=== PATIENT | female | born 2000 | race Caucasian/White ===

== ENCOUNTER 2019-10-18 22:34 | Emergency (ER) | payer OTHER ==
[~2019-10-18] VITALS: Ht 172.7 cm; Wt 62.8 kg
[2019-10-19] MEDS ORDERED: NITROFURANTOIN (MACROBID) 100 MG CAP PO ONE (00:30)
[2019-10-19] MEDS ORDERED: MACR100C43 PO (00:44)
[2019-10-19 00:47] VITALS: BP 124/67
[2019-10-19] MEDS ORDERED: DIFL150T PO (00:50)
== END 2019-10-19 00:50 | disposition home or self-care (01) ==
LOC: M ED 22:34
DX: N39.0 Urinary tract infection, site not specified (principal); R30.0 Dysuria

== ENCOUNTER → 2020-08-11 | Outpatient (CLI) | payer OTHER ==
[~2020-08-11] MED LIST: DIFL150T PO; ISOVUE-300 61% 50ML VIAL As Ordered ONE; LIDOCAINE 1% MDV 20ML VIAL As Ordered ONE; MACR100C43 PO; PROHANCE 279.3MG/ML 5ML VIAL As Ordered ONE
--- NOTE | 2020-08-11 10:59 | REP ---
INDICATION: PAIN IN LT HIP COMPARISON: None. TECHNIQUE: Coronal T1, STIR through the pelvis, axial, coronal, sagittal T2 fat sat, post arthrogram axial T1 fat sat, coronal T1 fat sat, sagittal T1 fat sat left hip. FINDINGS: The visualized osseous structures demonstrate normal bone marrow signal. There is no bone marrow edema or occult fracture. No MR evidence of bone lesion. There is no evidence of avascular necrosis. There is a tear at the anterior superior corner of the left labrum. There is no paralabral cyst. There is normal amount of joint fluid. Mild ill-defined high signal is seen in the tendinous structures along the greater trochanters bilaterally compatible with mild bilateral greater trochanteric tendonobursitis. Other surrounding soft tissue structures of the hips are unremarkable. The visualized intrapelvic structures are unremarkable. IMPRESSION: Findings consistent with a labral tear of the left hip at the anterior superior corner. There also findings compatible with mild bilateral greater trochanteric tendonobursitis. <Electronically signed by Steve Guerrero > 08/11/20 [id number]
--- NOTE | 2020-08-11 14:55 | REP ---
INDICATION: PAIN IN LT HIP. COMPARISON: None TECHNIQUE: The procedure was performed by MIGUEL Butler, under the direct supervision of Dr. Guerrero. The benefits and risks of the procedure were explained to the patient, and an informed consent was obtained. Directly prior to the start of the procedure, a formal time-out was completed in the procedure room. The left femoral neck joint space was localized using fluoroscopic guidance. The skin was prepped and draped in a sterile fashion. Approximately 5 mL of 1% Lidocaine 10 mg/ml was used as a local anesthetic. Using fluoroscopic guidance, a #22 gauge spinal needle was inserted and advanced into the left femoral neck joint space. Approximately 1 mL of Isovue 300 was injected to verify placement. Twelve mL of a solution containing 20 mL of sterile saline and 0.15 mL of ProHance was injected into the joint space. The needle was removed and the patient was taken to MRI for post procedural imaging. FINDINGS: The patient tolerated the procedure well and there were no immediate complications. IMPRESSION: Fluoroscopically guided left hip intra-articular MRI arthrogram injection. 0.1 minutes of fluoroscopy time was utilized for this procedure. Some fluoroscopic images are performed with last image hold technology. These images require no additional radiation. <Electronically signed by Caitlyn Huff > 08/11/20 [id number] <Electronically signed by Steve Guerrero > 08/11/20 [id number]
== END ==
LOC: M RADPRO 06:21
PROVIDERS: ATTEND Physician Assistant
DX: S76.012A Strain of muscle, fascia and tendon of left hip, initial encounter (principal); M70.62 Trochanteric bursitis, left hip; M25.552 Pain in left hip; X58.XXXA Exposure to other specified factors, initial encounter; Y99.8 Other external cause status; Y92.89 Other specified places as the place of occurrence of the external cause; Y93.89 Activity, other specified
CPT/HCPCS: 27093; 73723; 77002; A9576; Q9967

== ENCOUNTER → 2020-09-18 | Outpatient (CLI) | payer OTHER ==
[~2020-09-18] MED LIST changes: -PROHANCE 279.3MG/ML 5ML VIAL As Ordered ONE; +TRIAMCINOLONE ACETONIDE SUSP 40 MG/ML VIAL (J3301) As Ordered ONE
--- NOTE | 2020-09-18 20:02 | REP ---
INDICATION: LT HIP LABRAL TEAR. COMPARISON: None. TECHNIQUE: The procedure was performed under the direct supervision of Dr. Guerrero. The benefits and risks including but not limited to pain infection and bleeding and anaphylaxis were explained to the patient and informed consent was obtained. The left femoral neck was localized using fluoroscopic guidance. The skin was prepped and draped in a sterile fashion. 1% lidocaine was used as a local anesthetic. Using fluoroscopic guidance, and last image hold technology, a 22-gauge spinal needle was inserted and advanced to the femoral neck. 0.5 ml of Isovue-300 was injected to verify placement. Ten ml of a solution containing 9 ml of 1% Xylocaine and 1 mL of Kenalog 40 mg was injected. The needle was then removed. The patient tolerated the procedure well and there were no immediate complications. Less than 6 seconds of fluoro time was utilized for this procedure. FINDINGS: None IMPRESSION: Fluoro guidance for left hip injection. <Electronically signed by Alan Richardson > 09/18/20 [id number] <Electronically signed by Steve Guerrero > 09/18/20 [id number]
== END ==
LOC: M RADPRO 13:04
PROVIDERS: ATTEND Physician Assistant Surgical
DX: S73.122A Ischiocapsular ligament sprain of left hip, initial encounter (principal)
CPT/HCPCS: 20610; 77002; J3301; Q9967

== ENCOUNTER → 2023-10-13 | Outpatient (CLI) | payer OTHER ==
[~2023-10-13] MED LIST changes: -ISOVUE-300 61% 50ML VIAL As Ordered ONE; -TRIAMCINOLONE ACETONIDE SUSP 40 MG/ML VIAL (J3301) As Ordered ONE
== END ==
LOC: M IRPRO 12:17
PROVIDERS: ATTEND Otolaryngology
DX: E04.1 Nontoxic single thyroid nodule (principal)